=== PATIENT | female | born 1980 | race Caucasian/White ===

== ENCOUNTER 2021-07-31 21:17 | Emergency (ER) | payer MEDICAID, OTHER ==
[~2021-07-31] VITALS: Ht 172.7 cm; Wt 54.4 kg
[2021-07-31] MEDS ORDERED: LABETALOL HCL 5 MG/ML 4ML SYRINGE IV ONE ×2 (21:30→22:45)
[2021-07-31] MEDS ORDERED: LABETALOL HCL 5 MG/ML ML 20ML VIAL IV ONE (21:40)
[2021-08-01 02:00] VITALS: BP 163/92
== END 2021-08-01 02:55 | disposition home or self-care (01) ==
LOC: EDBD 21:17 → ER 21:22
DX: G40.909 Epilepsy, unspecified, not intractable, without status epilepticus (principal); I10 Essential (primary) hypertension; F12.10 Cannabis abuse, uncomplicated; F15.10 Other stimulant abuse, uncomplicated
CPT/HCPCS: 70450; 96374; 96376

== ENCOUNTER 2023-05-27 13:19 | Inpatient (IN) | payer MEDICAID, OTHER ==
[~2023-05-27] VITALS: Ht 172.7 cm; Wt 61.8 kg
[2023-05-27] MEDS ORDERED: ONDANSETRON HCL 4 MG/2 ML VIAL IV ONE (13:30)
[2023-05-27] MEDS ORDERED: MORPHINE SULFATE 4 MG/ML SYR/VIAL IV ONE (13:30)
[2023-05-27] MEDS ORDERED: SODIUM CHLORIDE 0.9% 1,000 ML IVB ONE (13:30)
[2023-05-27] MEDS ORDERED: PANTOPRAZOLE 40 MG/10 ML VIAL INJ IV ONE (13:30)
[2023-05-27 13:49] LABS: Basophils # (auto) 0.1 10 ^3/uL (0-0.2); Basophils % (auto) 0.2 % (0.0-2.0); Eosinophils # (auto) 0 10 ^3/uL (0-0.8); Hematocrit 50.2 % (36.0-46.0); Hemoglobin 16.7 g/dL (12.2-16.2); Lymphocytes % (auto) 4.8 % (10.0-50.0); Mean Corpuscular Hemoglobin 32.5 pg (28.0-32.0); Mean Corpuscular Hgb Conc. 33.3 g/dL (32.0-36.0); Mean Corpuscular Volume 97.8 fL (80.0-100.0); Monocytes # (auto) 1.4 10 ^3/uL (0-1.3); Monocytes % (auto) 6.6 % (0.0-12.0); Neutrophils # (auto) 18.9 10 ^3/uL (1.6-8.6); Neutrophils % (auto) 88.4 % (37.0-80.0); Red Blood Cells 5.13 10^6/uL (4.0-5.20); Red Cell Distribution Width 16.5 % (11.8-14.3); White Blood Cell 21.4 10^3/uL (4.4-10.8)
[2023-05-27] MEDS ORDERED: cloNIDine HCL 0.1 MG TAB PO ONE (14:00)
[2023-05-27 14:09] LABS: Alanine Aminotransferase 15 U/L (7-40); Albumin 4.9 g/dL (3.2-4.8); Alkaline Phosphatase 89 U/L (46-116); Anion Gap 10 (5-15); Aspartate Aminotransferase 25 U/L (13-40); BUN/Creatinine Ratio 10.7 (10.0-20.0); Bilirubin, Total 1.5 mg/dL (0.2-1.0); Blood Urea Nitrogen 17 mg/dL (9-23); Carbon Dioxide 24 mmol/L (20-30); Chloride 98 mmol/L (98-107); Glucose 125 mg/dL (74-106); Lipase 270 U/L (12-53); Magnesium 1.7 mg/dL (1.6-2.6); Potassium 3.6 mmol/L (3.5-5.1); Sodium 132 mmol/L (136-145); Total Protein 8.3 g/dL (5.7-8.2)
[2023-05-27] MEDS ORDERED: hydrALAZINE HCL 20 MG/ML VL IV PRN (21:00)
[2023-05-27] MEDS ORDERED: NITROGLYCERIN 0.4 MG SL TAB SL PRN (21:00)
[2023-05-27] MEDS ORDERED: cefTRIAXone 1GM/50ML D5W 50 ML IV ONE (21:00)
[2023-05-27] MEDS ORDERED: MORPHINE SULFATE INJ 2 MG/ml SYRG IV PRN (21:00)
[2023-05-28] MEDS: ONDANSETRON HCL 4 MG/2 ML VIAL IV PRN ×2 (01:07→22:05)
[2023-05-28] MEDS: MORPHINE SULFATE INJ 2 MG/ml SYRG IV PRN ×4 (01:08→22:06)
[2023-05-28] MEDS: SODIUM CHLORIDE 0.9% 1,000 ML IV SCH ×4 (02:28→18:06)
[2023-05-28 04:32] VITALS: PULSE 94; RESP 18
[2023-05-28 07:13] LABS: Basophils # (auto) 0 10 ^3/uL (0-0.2); Basophils % (auto) 0.2 % (0.0-2.0); Eosinophils # (auto) 0 10 ^3/uL (0-0.8); Eosinophils % (auto) 0.2 % (0.0-7.0); Hematocrit 39.4 % (36.0-46.0); Hemoglobin 12.8 g/dL (12.2-16.2); Lymphocytes # (auto) 2.1 10 ^3/uL (0.4-5.4); Lymphocytes % (auto) 14.8 % (10.0-50.0); Mean Corpuscular Hgb Conc. 32.5 g/dL (32.0-36.0); Mean Corpuscular Volume 98.4 fL (80.0-100.0); Monocytes # (auto) 1.5 10 ^3/uL (0-1.3); Monocytes % (auto) 10.3 % (0.0-12.0); Neutrophils # (auto) 10.6 10 ^3/uL (1.6-8.6); Neutrophils % (auto) 74.5 % (37.0-80.0); Red Blood Cells 4.01 10^6/uL (4.0-5.20); Red Cell Distribution Width 16.5 % (11.8-14.3); White Blood Cell 14.2 10^3/uL (4.4-10.8)
[2023-05-28 07:18] LABS: Alanine Aminotransferase 10 U/L (7-40); Alkaline Phosphatase 59 U/L (46-116); Anion Gap 8 (5-15); Aspartate Aminotransferase 14 U/L (13-40); BUN/Creatinine Ratio 14.1 (10.0-20.0); Bilirubin, Total 0.6 mg/dL (0.2-1.0); Blood Urea Nitrogen 26 mg/dL (9-23); Calcium 9.2 mg/dL (8.7-10.4); Carbon Dioxide 24 mmol/L (20-30); Chloride 100 mmol/L (98-107); Glucose 97 mg/dL (74-106); Potassium 3.9 mmol/L (3.5-5.1); Sodium 132 mmol/L (136-145); Total Protein 6.8 g/dL (5.7-8.2)
[2023-05-28 09:50] LABS: Urine Bacteria NONE SEEN /hpf (None Seen); Urine Blood 2+ /uL (Negative); Urine Clarity HAZY (Clear); Urine Color Yellow (Yellow); Urine Hyaline Cast MOD /lpf (0 - 2); Urine Mucus FEW (None Seen); Urine Protein, UAD 3+ (Negative); Urine Specific Gravity 1.025 (1.001-1.035); Urine Urobilinogen Normal (Negative); Urine WBC 10 /hpf (0 - 5)
[2023-05-28 09:52] VITALS: PULSE 68; RESP 18; O2SAT 95
[2023-05-28] MEDS: PANTOPRAZOLE 40 MG/10 ML VIAL INJ IV SCH (10:08)
[2023-05-28] MEDS: ASPirin 81 mg TAB PO SCH (10:09)
[2023-05-28] MEDS: LOSARTAN POTASSIUM 50 MG TAB PO SCH (10:09)
[2023-05-28] MEDS: cefTRIAXone 1GM/50ML D5W 50 ML IV SCH (10:11)
[2023-05-28] MEDS: NIFEdipine ER 30 MG TAB PO SCH (10:11)
[2023-05-28 10:40] LABS: Amphetamine Screen, Urine Neg (NEGATIVE); Barbiturate Scree,Urine Neg (NEGATIVE); Benzodiazephine Screen, Urine Neg (NEGATIVE); Cannabinoid Screen, Urine Pos (NEGATIVE); Cocaine Screen, Urine Neg (NEGATIVE); Opiate Scree,Urine Pos (NEGATIVE); Phencyclidine Screen, Urine Neg (NEGATIVE)
[2023-05-28 20:00] VITALS: PULSE 71; RESP 18; O2SAT 96
[2023-05-28] MEDS: ATORVASTATIN 20 MG TAB PO SCH (22:05)
[2023-05-29] MEDS: SODIUM CHLORIDE 0.9% 1,000 ML IV SCH ×3 (05:15→21:15)
[2023-05-29 05:56] LABS: Chloride 105 mmol/L (98-107); Potassium 3.3 mmol/L (3.5-5.1); Sodium 136 mmol/L (136-145)
[2023-05-29 05:57] LABS: Anion Gap 7 (5-15); Calcium 9.1 mg/dL (8.5-10.1); Carbon Dioxide 24 mmol/L (20-30)
[2023-05-29 06:01] LABS: Alkaline Phosphatase 46 U/L (46-116)
[2023-05-29 06:02] LABS: BUN/Creatinine Ratio 17.2 (10.0-20.0); Blood Urea Nitrogen 23 mg/dL (9-23); Glucose 114 mg/dL (74-106); Triglycerides 94 mg/dL (< 150)
[2023-05-29 06:03] LABS: LDL Cholesterol 53 mg/dL (< 100)
[2023-05-29 06:04] LABS: Albumin 3.4 g/dL (3.2-4.8); Aspartate Aminotransferase 15 U/L (13-40); Bilirubin, Total 0.3 mg/dL (0.2-1.0); Cholesterol 113 mg/dL (< 200); HDL Cholesterol 38 mg/dL (40-59); Total Protein 5.6 g/dL (5.7-8.2)
[2023-05-29 06:16] LABS: Basophils # (auto) 0 10 ^3/uL (0-0.2); Basophils % (auto) 0.4 % (0.0-2.0); Eosinophils # (auto) 0.1 10 ^3/uL (0-0.8); Eosinophils % (auto) 1.3 % (0.0-7.0); Hematocrit 33.5 % (36.0-46.0); Hemoglobin 11.2 g/dL (12.2-16.2); Lymphocytes # (auto) 1.6 10 ^3/uL (0.4-5.4); Mean Corpuscular Hgb Conc. 33.4 g/dL (32.0-36.0); Mean Corpuscular Volume 98.9 fL (80.0-100.0); Monocytes # (auto) 0.8 10 ^3/uL (0-1.3); Monocytes % (auto) 9.4 % (0.0-12.0); Neutrophils # (auto) 6.2 10 ^3/uL (1.6-8.6); Neutrophils % (auto) 70.9 % (37.0-80.0); Red Blood Cells 3.38 10^6/uL (4.0-5.20); Red Cell Distribution Width 16.1 % (11.8-14.3); White Blood Cell 8.8 10^3/uL (4.4-10.8)
[2023-05-29 06:29] LABS: Alanine Aminotransferase 11 U/L (7-40)
[2023-05-29] MEDS ORDERED: POTASSIUM CHL 20 Meq TABLET PO ONE (07:15)
[2023-05-29] MEDS: ONDANSETRON HCL 4 MG/2 ML VIAL IV PRN (07:17)
[2023-05-29] MEDS: MORPHINE SULFATE INJ 2 MG/ml SYRG IV PRN ×3 (07:18→22:07)
[2023-05-29] MEDS: PANTOPRAZOLE 40 MG/10 ML VIAL INJ IV SCH (08:37)
[2023-05-29] MEDS: cefTRIAXone 1GM/50ML D5W 50 ML IV SCH (08:37)
[2023-05-29] MEDS: ASPirin 81 mg TAB PO SCH (08:38)
[2023-05-29] MEDS: LOSARTAN POTASSIUM 50 MG TAB PO SCH (08:38)
[2023-05-29] MEDS: NIFEdipine ER 30 MG TAB PO SCH (08:38)
[2023-05-29 09:06] LABS: Lipase 79 U/L (12-53); Magnesium 1.8 mg/dL (1.6-2.6)
[2023-05-29 13:01] VITALS: BP 116/74; PULSE 75; RESP 16; TEMP 98.1; O2SAT 95
[2023-05-29] MEDS ORDERED: LOSA100T58 PO (13:50)
[2023-05-29] MEDS ORDERED: NIFE90TA75 PO (13:51)
[2023-05-29] MEDS ORDERED: GADOTERATE MEG 10 MMOL/20ml INJ (0.5MMOL/ml) IV ONE (15:14)
[2023-05-29 16:56] VITALS: BP 113/71; PULSE 81; RESP 16; TEMP 98.2; O2SAT 98
[2023-05-29 20:00] VITALS: BP 113/71; PULSE 81; PULSE 91; RESP 16; TEMP 98.2; O2SAT 98
[2023-05-29] MEDS: ATORVASTATIN 20 MG TAB PO SCH (21:44)
[2023-05-29 21:50] VITALS: BP 126/78; PULSE 108; RESP 16; TEMP 98.1; O2SAT 98
[2023-05-30] MEDS: SODIUM CHLORIDE 0.9% 1,000 ML IV SCH ×2 (01:48→10:05)
[2023-05-30] MEDS: MORPHINE SULFATE INJ 2 MG/ml SYRG IV PRN (04:24)
[2023-05-30 05:00] VITALS: BP 124/75; PULSE 102; RESP 16; TEMP 97.6; O2SAT 100
[2023-05-30 08:00] VITALS: PULSE 114; PULSE 84; RESP 16; O2SAT 98
[2023-05-30 08:22] LABS: Anion Gap 6 (5-15); Carbon Dioxide 23 mmol/L (20-30); Chloride 109 mmol/L (98-107); Potassium 3.8 mmol/L (3.5-5.1); Sodium 138 mmol/L (136-145)
[2023-05-30 08:23] LABS: Calcium 8.9 mg/dL (8.5-10.1)
[2023-05-30 08:28] LABS: BUN/Creatinine Ratio 10.7 (10.0-20.0); Blood Urea Nitrogen 11 mg/dL (9-23); Glucose 96 mg/dL (74-106)
[2023-05-30 09:15] VITALS: BP 145/90; PULSE 114; RESP 16; TEMP 97.9; O2SAT 98
[2023-05-30] MEDS: cefTRIAXone 1GM/50ML D5W 50 ML IV SCH (09:19)
[2023-05-30] MEDS: LOSARTAN POTASSIUM 50 MG TAB PO SCH (09:58)
[2023-05-30] MEDS: ASPirin 81 mg TAB PO SCH (09:59)
[2023-05-30] MEDS: NIFEdipine ER 30 MG TAB PO SCH (09:59)
[2023-05-30] MEDS: PANTOPRAZOLE 40 MG/10 ML VIAL INJ IV SCH (09:59)
[2023-05-30 13:00] VITALS: BP 138/81; PULSE 92; RESP 18; TEMP 98; O2SAT 98
[2023-05-30 17:14] VITALS: BP 145/90
== END 2023-05-30 19:30 | disposition home or self-care (01) | DRG 282 ==
LOC: ER 13:19 → OVERFLOW 21:12 → TELE 21:12 → UNDOADMIN 21:12 → TELE-CENTR 05-29 12:31 → CENTRAL 05-30 15:43
PROVIDERS: ADMIT Nurse Practitioner; ATTEND Internal Medicine Geriatric Medicine
DX: K85.20 Alcohol induced acute pancreatitis without necrosis or infection (principal); R65.11 Systemic inflammatory response syndrome (SIRS) of non-infectious origin with acute organ dysfunction; I21.A1 Myocardial infarction type 2; N17.9 Acute kidney failure, unspecified; F17.210 Nicotine dependence, cigarettes, uncomplicated; I16.0 Hypertensive urgency; I10 Essential (primary) hypertension; N28.1 Cyst of kidney, acquired; Z82.49 Family history of ischemic heart disease and other diseases of the circulatory system; Z83.3 Family history of diabetes mellitus; Z98.51 Tubal ligation status
CPT/HCPCS: 36415; 74176; 74183; 80048; 80053; 80061; 80307; 81001; 83605; 83690; 83735; 84484; 85025; 93005; C9113; G0378; J0696; J2405

== ENCOUNTER 2023-12-25 21:30 | Inpatient (IN) | payer MEDICAID, OTHER ==
[~2023-12-25] VITALS: Ht 170.2 cm; Wt 135.6 kg
[~2023-12-25 21:30] MED LIST: LOSA-535 PO; NIFE90TA75 PO
[2023-12-25 22:00] VITALS: PULSE 112; RESP 15; O2SAT 99
[2023-12-25] MEDS: KETOROLAC TROMETH 30 MG/ML 1ML VIAL IV ONE (22:10)
[2023-12-25 22:21] LABS: Chloride 107 mmol/L (98-107); Potassium 3.5 mmol/L (3.5-5.1); Sodium 136 mmol/L (136-145)
[2023-12-25 22:22] LABS: Anion Gap 10 (5-15); Calcium 11.1 mg/dL (8.5-10.1); Carbon Dioxide 19 mmol/L (20-30)
[2023-12-25 22:27] LABS: BUN/Creatinine Ratio 16.4 (10.0-20.0); Blood Urea Nitrogen 30 mg/dL (9-23); Glucose 129 mg/dL (74-106)
[2023-12-25 22:58] LABS: Basophils # (auto) 0.1 10 ^3/uL (0-0.2); Basophils % (auto) 0.6 % (0.0-2.0); Eosinophils # (auto) 0.1 10 ^3/uL (0-0.8); Hematocrit 36.2 % (36.0-46.0); Hemoglobin 11.9 g/dL (12.2-16.2); Lymphocytes # (auto) 1.6 10 ^3/uL (0.4-5.4); Lymphocytes % (auto) 12.8 % (10.0-50.0); Mean Corpuscular Hemoglobin 31.8 pg (28.0-32.0); Mean Corpuscular Hgb Conc. 32.9 g/dL (32.0-36.0); Mean Corpuscular Volume 96.8 fL (80.0-100.0); Monocytes # (auto) 1.1 10 ^3/uL (0-1.3); Monocytes % (auto) 9.2 % (0.0-12.0); Neutrophils # (auto) 9.4 10 ^3/uL (1.6-8.6); Neutrophils % (auto) 76.4 % (37.0-80.0); Nucleated Red Blood Cells % 0.1 %; Red Blood Cells 3.74 10^6/uL (4.0-5.20); Red Cell Distribution Width 17.6 % (11.8-14.3); White Blood Cell 12.3 10^3/uL (4.4-10.8)
[2023-12-26] VITALS (11 sets, daily range): BP systolic 104–166; BP diastolic 62–105; PULSE 73–108; RESP 18–20; TEMP 97.7–98.5; O2SAT 96–100
[2023-12-26] MEDS ORDERED: NITROGLYCERIN 0.4 MG SL TAB SL PRN (00:15)
[2023-12-26] MEDS: HYDROcodone-ACET 5/325MG TAB PO PRN (00:50)
[2023-12-26 01:35] LABS: Triglycerides 92 mg/dL (< 150)
[2023-12-26 01:36] LABS: Blood Alcohol < 3.0 mg/dL (<10); LDL Cholesterol 84 mg/dL (< 100)
[2023-12-26 01:37] LABS: Cholesterol 117 mg/dL (< 200); HDL Cholesterol 25 mg/dL (40-59)
[2023-12-26] MEDS: MORPHINE SULFATE INJ 2 MG/ml SYRG IV PRN (01:47)
[2023-12-26] MEDS: ONDANSETRON HCL 4 MG/2 ML VIAL IV PRN (01:48)
[2023-12-26 01:49] LABS: Lipase 920 U/L (12-53)
[2023-12-26] MEDS ORDERED: FURO40TA4 PO (03:18)
[2023-12-26] MEDS: hydrALAZINE HCL 20 MG/ML VL IV PRN (03:25)
[2023-12-26] MEDS: HYDROcodone-ACET 5/325MG TAB PO ONE (07:01)
[2023-12-26] MEDS: FUROSEMIDE 40 MG TAB PO SCH (09:02)
[2023-12-26] MEDS: ASPirin 81 mg TAB PO SCH (09:03)
[2023-12-26] MEDS: cloNIDine HCL 0.1 MG TAB PO SCH (09:10)
[2023-12-26] MEDS: NIFEdipine ER 30 MG TAB PO SCH (09:10)
[2023-12-26] MEDS: SODIUM BICARB 50mEq/50ml Vial 50 ML in SOD CHL 0.45% 1,000 ML IV SCH (12:18)
[2023-12-26 12:46] LABS: Phosphorus 3.6 mg/dL (2.4-5.1)
[2023-12-26 14:43] LABS: Urine Bacteria None Seen /hpf (None Seen); Urine WBC None Seen /hpf (0 - 5)
[2023-12-26 15:12] LABS: Urine Blood 1+ /uL (Negative); Urine Clarity Clear (Clear); Urine Color Colorless (Yellow); Urine Protein, UAD Negative (Negative); Urine Specific Gravity 1.008 (1.001-1.035); Urine Urobilinogen Normal (Negative); Urine pH 5.5 (5.0-9.0)
[2023-12-26 15:17] LABS: Sodium Urine 80 mmol/L (40-220)
[2023-12-26 15:23] LABS: Protein, Urine < 6.0 mg/dL (0.0-11.9)
[2023-12-26 15:24] LABS: Amphetamine Screen, Urine Neg (NEGATIVE); Benzodiazephine Screen, Urine Neg (NEGATIVE)
[2023-12-26 15:25] LABS: Barbiturate Scree,Urine Neg (NEGATIVE); Cannabinoid Screen, Urine Pos (NEGATIVE); Cocaine Screen, Urine Neg (NEGATIVE); Opiate Scree,Urine Pos (NEGATIVE); Phencyclidine Screen, Urine Neg (NEGATIVE)
[2023-12-26] MEDS ORDERED: NIFE1TAB30 PO (15:54)
[2023-12-26] MEDS: HYDROmorphone HCL 2 MG/ML VL/or syr IV PRN (17:54)
[2023-12-26] MEDS ORDERED: ATORVASTATIN 20 MG TAB PO SCH (22:00)
[2023-12-27] VITALS (8 sets, daily range): BP systolic 115–150; BP diastolic 75–97; PULSE 62–89; RESP 18–20; TEMP 97.9–98.7; O2SAT 95–99
[2023-12-27 05:58] LABS: Basophils # (auto) 0 10 ^3/uL (0-0.2); Basophils % (auto) 0.8 % (0.0-2.0); Eosinophils # (auto) 0.3 10 ^3/uL (0-0.8); Eosinophils % (auto) 4.7 % (0.0-7.0); Hematocrit 28.5 % (36.0-46.0); Hemoglobin 9.6 g/dL (12.2-16.2); Lymphocytes # (auto) 2.1 10 ^3/uL (0.4-5.4); Lymphocytes % (auto) 35.2 % (10.0-50.0); Mean Corpuscular Hemoglobin 32.6 pg (28.0-32.0); Mean Corpuscular Hgb Conc. 33.7 g/dL (32.0-36.0); Mean Corpuscular Volume 96.7 fL (80.0-100.0); Monocytes # (auto) 0.6 10 ^3/uL (0-1.3); Monocytes % (auto) 10.2 % (0.0-12.0); Neutrophils # (auto) 2.9 10 ^3/uL (1.6-8.6); Neutrophils % (auto) 49.1 % (37.0-80.0); Nucleated Red Blood Cells % 0.1 %; Red Blood Cells 2.95 10^6/uL (4.0-5.20); Red Cell Distribution Width 17.7 % (11.8-14.3); White Blood Cell 5.9 10^3/uL (4.4-10.8)
[2023-12-27 06:15] LABS: Albumin 3.4 g/dL (3.2-4.8); Alkaline Phosphatase 55 U/L (46-116); Calcium 8.5 mg/dL (8.5-10.1); Carbon Dioxide 23 mmol/L (20-30); Chloride 108 mmol/L (98-107); Glucose 85 mg/dL (74-106); Triglycerides 114 mg/dL (< 150)
[2023-12-27 06:16] LABS: Alanine Aminotransferase < 9 U/L (7-40); Anion Gap 5 (5-15); Aspartate Aminotransferase 10 U/L (13-40); BUN/Creatinine Ratio 15.9 (10.0-20.0); Bilirubin, Total 0.2 mg/dL (0.2-1.0); Blood Urea Nitrogen 21 mg/dL (9-23); Cholesterol 101 mg/dL (< 200); HDL Cholesterol 20 mg/dL (40-59); LDL Cholesterol 67 mg/dL (< 100); Magnesium 1.9 mg/dL (1.6-2.6); Potassium 3.9 mmol/L (3.5-5.1); Sodium 136 mmol/L (136-145); Total Protein 5.9 g/dL (5.7-8.2)
[2023-12-27 06:42] LABS: Lipase 930 U/L (12-53)
[2023-12-27] MEDS ORDERED: TPN PER PHARMACY 0 ML IV SCH (14:30)
[2023-12-27] MEDS: FAMOTIDINE (10MG/ML) 2ML VL IV ONE (14:30)
[2023-12-27] MEDS: cefTRIAXone 1GM/50ML D5W 50 ML IV ONE (17:27)
[2023-12-27] MEDS: FAMOTIDINE (10MG/ML) 2ML VL IV SCH (17:27)
[2023-12-27] MEDS: HYDROmorphone HCL 2 MG/ML VL/or syr IV PRN (17:30)
[2023-12-27] MEDS: AMINO ACID INFUSION IN D5W 2,000 ML IV NR (20:28)
[2023-12-27] MEDS: metroNIDAZOLE 500MG/100ML 100 ML IV SCH (21:16)
[2023-12-27] MEDS: TEMAZEPAM 15 MG CAP PO PRN (22:57)
[2023-12-27] MEDS: InsuLIN REG 1unit/0.01ml Soln (100units/ml) SC SCH (23:04)
[2023-12-27] MEDS: ACCU-CHEK COMFORT CURVE STRIP VI SCH (23:04)
[2023-12-28] VITALS (8 sets, daily range): BP systolic 107–148; BP diastolic 74–91; PULSE 73–91; RESP 14–19; TEMP 97.5–98.3; O2SAT 96–100
[2023-12-28] MEDS ORDERED: DEXTROSE (50%) 50ML SYRG IV SCH
[2023-12-28 06:24] LABS: Alkaline Phosphatase 54 U/L (46-116); Anion Gap 2 (5-15); BUN/Creatinine Ratio 11.8 (10.0-20.0); Blood Urea Nitrogen 12 mg/dL (9-23); Calcium 8.1 mg/dL (8.5-10.1); Carbon Dioxide 26 mmol/L (20-30); Chloride 108 mmol/L (98-107); Glucose 94 mg/dL (74-106); Magnesium 1.8 mg/dL (1.6-2.6); Sodium 136 mmol/L (136-145)
[2023-12-28 06:25] LABS: Albumin 3.3 g/dL (3.2-4.8); Aspartate Aminotransferase 9 U/L (13-40); Phosphorus 1.6 mg/dL (2.4-5.1)
[2023-12-28 06:26] LABS: Alanine Aminotransferase < 9 U/L (7-40); Bilirubin, Total 0.2 mg/dL (0.2-1.0); Total Protein 5.8 g/dL (5.7-8.2)
[2023-12-28 07:00] LABS: Lipase 686 U/L (12-53)
[2023-12-28] MEDS: SODIUM BICARB 50mEq/50ml Vial 50 ML in SOD CHL 0.45% 1,000 ML IV SCH (10:00)
[2023-12-28] MEDS: cefTRIAXone 1GM/50ML D5W 50 ML IV SCH (10:02)
[2023-12-28] MEDS: HYDROmorphone HCL 2 MG/ML VL/or syr IV PRN (12:07)
[2023-12-28] MEDS: SODIUM PHOSPHATES 24 MEQ in SODIUM CHL 0.9% 100 ML IV ONE (20:08)
[2023-12-28] MEDS: AMINO ACID INFUSION IN D10W 1,000 ML IV SCH (22:20)
[2023-12-29] VITALS (8 sets, daily range): BP systolic 132–159; BP diastolic 84–96; PULSE 60–93; RESP 16–18; TEMP 97.9–98.4; O2SAT 96–100
[2023-12-29 05:13] LABS: Basophils # (auto) 0 10 ^3/uL (0-0.2); Basophils % (auto) 0.7 % (0.0-2.0); Eosinophils # (auto) 0.2 10 ^3/uL (0-0.8); Eosinophils % (auto) 4.5 % (0.0-7.0); Hematocrit 29.5 % (36.0-46.0); Lymphocytes # (auto) 1.2 10 ^3/uL (0.4-5.4); Mean Corpuscular Hemoglobin 32.6 pg (28.0-32.0); Mean Corpuscular Hgb Conc. 33.8 g/dL (32.0-36.0); Mean Corpuscular Volume 96.5 fL (80.0-100.0); Monocytes # (auto) 0.4 10 ^3/uL (0-1.3); Monocytes % (auto) 9.4 % (0.0-12.0); Neutrophils # (auto) 2.5 10 ^3/uL (1.6-8.6); Neutrophils % (auto) 57.4 % (37.0-80.0); Nucleated Red Blood Cells % 0.1 %; Red Blood Cells 3.06 10^6/uL (4.0-5.20); Red Cell Distribution Width 17.3 % (11.8-14.3); White Blood Cell 4.4 10^3/uL (4.4-10.8)
[2023-12-29 05:29] LABS: Albumin 3.3 g/dL (3.2-4.8); Alkaline Phosphatase 53 U/L (46-116); Anion Gap 1 (5-15); Aspartate Aminotransferase 8 U/L (13-40); BUN/Creatinine Ratio 8.6 (10.0-20.0); Blood Urea Nitrogen 8 mg/dL (9-23); Calcium 8.2 mg/dL (8.7-10.4); Carbon Dioxide 24 mmol/L (20-30); Chloride 113 mmol/L (98-107); Glucose 100 mg/dL (74-106); Lipase 247 U/L (12-53); Magnesium 1.7 mg/dL (1.6-2.6); Potassium 3.8 mmol/L (3.5-5.1); Sodium 138 mmol/L (136-145)
[2023-12-29 05:30] LABS: Alanine Aminotransferase < 9 U/L (7-40); Bilirubin, Total 0.2 mg/dL (0.2-1.0); Phosphorus 1.6 mg/dL (2.4-5.1)
[2023-12-29] MEDS: PANCREATIC ENZYMES 4200 UNIT CAP PO SCH (12:45)
[2023-12-29] MEDS: SODIUM PHOSPHATES 40 MEQ in D5W 5% 250 ML IV ONE (12:56)
[2023-12-30] VITALS (7 sets, daily range): BP systolic 142–172; BP diastolic 73–107; PULSE 70–91; RESP 17–18; TEMP 98–98.6; O2SAT 90–100
[2023-12-30 06:49] LABS: Potassium 3.9 mmol/L (3.5-5.1)
[2023-12-30 06:50] LABS: Calcium 8.3 mg/dL (8.5-10.1)
[2023-12-30 06:55] LABS: BUN/Creatinine Ratio 8.5 (10.0-20.0)
[2023-12-30 06:56] LABS: Magnesium 1.8 mg/dL (1.6-2.6)
[2023-12-30 06:57] LABS: Albumin 3.3 g/dL (3.2-4.8); Phosphorus 2.7 mg/dL (2.4-5.1)
[2023-12-30] MEDS: FAMOTIDINE (10MG/ML) 2ML VL IV SCH (22:20)
[2023-12-31] VITALS (8 sets, daily range): BP systolic 126–167; BP diastolic 83–107; PULSE 65–89; RESP 16–20; TEMP 98–98.4; O2SAT 95–99
[2023-12-31 07:05] LABS: Alanine Aminotransferase < 9 U/L (7-40); Albumin 3.1 g/dL (3.2-4.8); Alkaline Phosphatase 47 U/L (46-116); Anion Gap 2 (5-15); Aspartate Aminotransferase < 8 U/L (13-40); BUN/Creatinine Ratio 8.2 (10.0-20.0); Blood Urea Nitrogen 8 mg/dL (9-23); Carbon Dioxide 21 mmol/L (20-30); Chloride 116 mmol/L (98-107); Glucose 86 mg/dL (74-106); Lipase 193 U/L (12-53); Sodium 139 mmol/L (136-145)
[2023-12-31 07:06] LABS: Bilirubin, Total < 0.2 mg/dL (0.2-1.0); Total Protein 5.7 g/dL (5.7-8.2)
[2023-12-31] MEDS ORDERED: GADOTERATE MEG 10 MMOL/20ml INJ (0.5MMOL/ml) IV ONE (10:16)
[2023-12-31 11:04] LABS: INR 1.08 (0.9-1.15); Partial Thromboplastin Time 30.8 SEC (24.5-34.5); Prothrombin Time 11.4 sec (9.3-11.8)
[2024-01-01] VITALS (9 sets, daily range): BP systolic 118–161; BP diastolic 60–101; PULSE 62–108; RESP 16–20; TEMP 97.9–98.5; O2SAT 96–99
[2024-01-02] VITALS (7 sets, daily range): BP systolic 131–160; BP diastolic 88–103; PULSE 71–116; RESP 17–20; TEMP 97.7–98.4; O2SAT 96–99
[2024-01-02] MEDS: ACETAMINOPHEN 325 MG TAB PO PRN (05:19)
[2024-01-02] MEDS ORDERED: ACET-1079 PO (09:11)
[2024-01-02] MEDS ORDERED: ZOFR4T PO (09:11)
[2024-01-02] MEDS ORDERED: PANC1CAP48 PO (09:12)
== END 2024-01-02 12:48 | disposition home or self-care (01) | DRG 282 ==
LOC: ER 21:30 → EDBD 21:30 → TELE 12-26 00:18 → TELE-WESTW 12-26 00:18
PROVIDERS: ADMIT Nurse Practitioner; ATTEND Internal Medicine Geriatric Medicine
DX: K85.90 Acute pancreatitis without necrosis or infection, unspecified (principal); N17.0 Acute kidney failure with tubular necrosis; D63.1 Anemia in chronic kidney disease; E87.20 Acidosis, unspecified; E83.52 Hypercalcemia; I12.9 Hypertensive chronic kidney disease with stage 1 through stage 4 chronic kidney disease, or unspecified chronic kidney disease; N28.1 Cyst of kidney, acquired; N18.9 Chronic kidney disease, unspecified; K86.3 Pseudocyst of pancreas; F15.10 Other stimulant abuse, uncomplicated; F10.10 Alcohol abuse, uncomplicated; Y90.9 Presence of alcohol in blood, level not specified; F17.210 Nicotine dependence, cigarettes, uncomplicated; Z79.899 Other long term (current) drug therapy; Z83.3 Family history of diabetes mellitus; Z82.5 Family history of asthma and other chronic lower respiratory diseases; Z81.8 Family history of other mental and behavioral disorders; Z82.49 Family history of ischemic heart disease and other diseases of the circulatory system
CPT/HCPCS: 36415; 71045; 74176; 74183; 76705; 76775; 80048; 80053; 80061; 80069; 80307; 80320; 81001; 82306; 82570; 82962; 83690; 83735; 83880; 84100; 84156; 84300; 84443; 84484; 85025; 85379; 85610; 85730; 93005; 93306; 96374; 96375; 99291; G0378; J1885; J2405; J3490; J7060

== ENCOUNTER 2024-01-20 18:38 | Inpatient (IN) | payer MEDICAID ==
[~2024-01-20] VITALS: Ht 172.7 cm; Wt 55.0 kg
[~2024-01-20 18:38] MED LIST changes: +ACET-1079 PO; -NIFE90TA75 PO; +PANC1CAP48 PO; +ZOFR4T PO
[2024-01-20 19:04] LABS: Basophils # (auto) 0 10 ^3/uL (0-0.2); Basophils % (auto) 0.3 % (0.0-2.0); Eosinophils # (auto) 0.2 10 ^3/uL (0-0.8); Hematocrit 35.6 % (36.0-46.0); Hemoglobin 11.7 g/dL (12.2-16.2); Lymphocytes # (auto) 1.5 10 ^3/uL (0.4-5.4); Lymphocytes % (auto) 12.3 % (10.0-50.0); Mean Corpuscular Hemoglobin 30.6 pg (28.0-32.0); Mean Corpuscular Hgb Conc. 32.8 g/dL (32.0-36.0); Mean Corpuscular Volume 93.2 fL (80.0-100.0); Monocytes # (auto) 0.9 10 ^3/uL (0-1.3); Monocytes % (auto) 7.4 % (0.0-12.0); Neutrophils # (auto) 9.6 10 ^3/uL (1.6-8.6); Red Blood Cells 3.82 10^6/uL (4.0-5.20); Red Cell Distribution Width 16.9 % (11.8-14.3); White Blood Cell 12.3 10^3/uL (4.4-10.8)
[2024-01-20 19:26] LABS: Alanine Aminotransferase 10 U/L (7-40); Alkaline Phosphatase 63 U/L (46-116); Anion Gap 10 (5-15); Aspartate Aminotransferase 14 U/L (13-40); BUN/Creatinine Ratio 9.6 (10.0-20.0); Bilirubin, Total 0.4 mg/dL (0.2-1.0); Blood Urea Nitrogen 12 mg/dL (9-23); Calcium 9.4 mg/dL (8.7-10.4); Carbon Dioxide 16 mmol/L (20-30); Chloride 110 mmol/L (98-107); Glucose 156 mg/dL (74-106); Potassium 3.5 mmol/L (3.5-5.1); Sodium 136 mmol/L (136-145); Total Protein 7.1 g/dL (5.7-8.2)
[2024-01-20 19:33] LABS: Lipase 884 U/L (12-53)
[2024-01-20] MEDS: SODIUM CHLORIDE 0.9% 1,000 ML IVB ONE (19:42)
[2024-01-20] MEDS: PROCHLORPERAZINE EDISYLATE 5 MG/ML 2ML VIAL IV ONE (19:42)
[2024-01-20] MEDS: PANTOPRAZOLE 40 MG/10 ML VIAL INJ IV ONE (19:42)
[2024-01-20] MEDS: HYDROmorphone HCL 2 MG/ML VL/or syr IV ONE (19:45)
[2024-01-20] MEDS: hydrALAZINE HCL 20 MG/ML VL IV ONE (20:14)
[2024-01-20] MEDS: diphenhdrAMINE HCL 50 MG/1 ML VL IV ONE (20:42)
[2024-01-20] MEDS ORDERED: ACETAMINOPHEN 325 MG TAB PO PRN (21:15)
[2024-01-20] MEDS ORDERED: DOCUSATE SOD 100 MG CAP PO PRN (21:15)
[2024-01-20 21:38] LABS: LDL Cholesterol 83 mg/dL (< 100); Triglycerides 95 mg/dL (< 150)
[2024-01-20 21:39] LABS: HDL Cholesterol 37 mg/dL (40-59)
[2024-01-20] MEDS: LACTATED RINGER'S 1,000 ML IV ONE (21:41)
[2024-01-20] MEDS: LABETALOL HCL 20 MG/4 ML VL IV ONE (21:44)
[2024-01-20] MEDS: HYDROcodone-ACET 5/325MG TAB PO PRN (21:57)
[2024-01-20 22:13] LABS: Cholesterol 131 mg/dL (< 200)
[2024-01-20] MEDS: SODIUM CHLOR 0.9% PF (SALINE LOCK) 10ML VIAL/SYR IV SCH (22:36)
[2024-01-20] MEDS: LABETALOL HCL 20 MG/4 ML VL IV PRN (23:35)
[2024-01-21 00:29] LABS: Creatinine, Urine 46.4 mg/dL (30.0-125.0); Urine Bacteria FEW /hpf (None Seen); Urine Blood Negative /uL (Negative); Urine Budding Yeast OCCASIONAL /hpf (None Seen); Urine Clarity Turbid (Clear); Urine Color Light-Yellow (Yellow); Urine Mucus FEW (None Seen); Urine Protein, UAD 1+ (Negative); Urine Specific Gravity 1.013 (1.001-1.035); Urine Urobilinogen Normal (Negative); Urine WBC 3 /hpf (0 - 5); Urine pH 6.5 (5.0-9.0)
[2024-01-21] MEDS: hydrALAZINE HCL 20 MG/ML VL IV PRN (01:58)
[2024-01-21] MEDS: HYDROmorphone HCL 2 MG/ML VL/or syr IV PRN (03:15)
[2024-01-21 07:30] VITALS: PULSE 88; RESP 88; O2SAT 99
[2024-01-21] MEDS: PANCREATIC ENZYMES 4200 UNIT CAP PO SCH (08:56)
[2024-01-21] MEDS: PANTOPRAZOLE 40 MG/10 ML VIAL INJ IV SCH (09:02)
[2024-01-21 13:37] LABS: Amphetamine Screen, Urine Neg (NEGATIVE); Barbiturate Scree,Urine Neg (NEGATIVE); Benzodiazephine Screen, Urine Neg (NEGATIVE); Cocaine Screen, Urine Neg (NEGATIVE); Opiate Scree,Urine Neg (NEGATIVE)
[2024-01-21 13:38] LABS: Cannabinoid Screen, Urine Pos (NEGATIVE); Phencyclidine Screen, Urine Neg (NEGATIVE)
[2024-01-21] MEDS: SODIUM CHLORIDE 0.9% 1,900 ML IV ONE (14:14)
[2024-01-21 15:13] LABS: Blood Alcohol < 3.0 mg/dL (<10); Triglycerides 79 mg/dL (< 150)
[2024-01-21 15:14] LABS: LDL Cholesterol 64 mg/dL (< 100)
[2024-01-21 15:15] LABS: Cholesterol 108 mg/dL (< 200); HDL Cholesterol 33 mg/dL (40-59)
[2024-01-21] MEDS: LOSARTAN POTASSIUM 50 MG TAB PO SCH (17:54)
[2024-01-21 19:25] VITALS: PULSE 109; RESP 17; O2SAT 98
[2024-01-21] MEDS ORDERED: MORPHINE SULFATE INJ 2 MG/ml SYRG IV PRN (19:45)
[2024-01-21] MEDS: ONDANSETRON HCL 4 MG/2 ML VIAL IV PRN (20:45)
[2024-01-22] VITALS (8 sets, daily range): BP systolic 114–138; BP diastolic 76–96; PULSE 74–101; RESP 16–18; TEMP 97.5–98.6; O2SAT 92–99
[2024-01-22 06:49] LABS: Basophils # (auto) 0 10 ^3/uL (0-0.2); Basophils % (auto) 0.3 % (0.0-2.0); Eosinophils # (auto) 0.2 10 ^3/uL (0-0.8); Eosinophils % (auto) 2.7 % (0.0-7.0); Hematocrit 27.2 % (36.0-46.0); Hemoglobin 9.1 g/dL (12.2-16.2); Lymphocytes # (auto) 1.6 10 ^3/uL (0.4-5.4); Lymphocytes % (auto) 25.3 % (10.0-50.0); Mean Corpuscular Hemoglobin 30.8 pg (28.0-32.0); Mean Corpuscular Hgb Conc. 33.3 g/dL (32.0-36.0); Mean Corpuscular Volume 92.6 fL (80.0-100.0); Monocytes # (auto) 0.6 10 ^3/uL (0-1.3); Monocytes % (auto) 9.2 % (0.0-12.0); Neutrophils % (auto) 62.5 % (37.0-80.0); Red Blood Cells 2.94 10^6/uL (4.0-5.20); Red Cell Distribution Width 16.7 % (11.8-14.3); White Blood Cell 6.3 10^3/uL (4.4-10.8)
[2024-01-22 07:06] LABS: Albumin 3.3 g/dL (3.2-4.8); Alkaline Phosphatase 53 U/L (46-116); Calcium 9.1 mg/dL (8.7-10.4); Carbon Dioxide 24 mmol/L (20-30); Chloride 111 mmol/L (98-107); Glucose 89 mg/dL (74-106); Potassium 4.2 mmol/L (3.5-5.1)
[2024-01-22 07:07] LABS: Anion Gap 4 (5-15); Aspartate Aminotransferase < 8 U/L (13-40); BUN/Creatinine Ratio 7.1 (10.0-20.0); Bilirubin, Total 0.5 mg/dL (0.2-1.0); Blood Urea Nitrogen 7 mg/dL (9-23); Sodium 139 mmol/L (136-145); Total Protein 5.9 g/dL (5.7-8.2)
[2024-01-22 07:08] LABS: Alanine Aminotransferase < 9 U/L (7-40)
[2024-01-22] MEDS ORDERED: PANT40TA2 PO (16:14)
== END 2024-01-22 18:58 | disposition home or self-care (01) | DRG 282 ==
LOC: EDBD 18:38 → ER 18:42 → TELE 21:05 → TELE-WESTW 01-21 21:17
PROVIDERS: ADMIT Internal Medicine Pulmonary Disease; ATTEND Internal Medicine Pulmonary Disease
DX: K85.90 Acute pancreatitis without necrosis or infection, unspecified (principal); N17.0 Acute kidney failure with tubular necrosis; D64.9 Anemia, unspecified; D72.829 Elevated white blood cell count, unspecified; F17.210 Nicotine dependence, cigarettes, uncomplicated; E11.65 Type 2 diabetes mellitus with hyperglycemia; I16.0 Hypertensive urgency; K86.3 Pseudocyst of pancreas; Z82.49 Family history of ischemic heart disease and other diseases of the circulatory system; Z83.3 Family history of diabetes mellitus; Z79.899 Other long term (current) drug therapy
CPT/HCPCS: 36415; 74176; 76700; 80053; 80061; 80307; 80320; 81001; 81025; 82570; 83036; 83690; 84300; 84702; 85025; 96361; 96374; 96375; G0378; J2405; J2470

== ENCOUNTER 2024-02-06 20:32 | Emergency (ER) | payer MEDICAID ==
[~2024-02-06] VITALS: Ht 172.7 cm; Wt 54.6 kg
[~2024-02-06 20:32] MED LIST changes: +PANT40TA2 PO
[2024-02-06] MEDS: SODIUM CHLORIDE 0.9% 500 ML IVB ONE (20:45)
[2024-02-06] MEDS: ONDANSETRON HCL 4 MG/2 ML VIAL IV ONE (20:45)
[2024-02-06] MEDS: PANTOPRAZOLE 40 MG/10 ML VIAL INJ IV ONE (20:45)
[2024-02-06] MEDS: MORPHINE SULFATE 4 MG/ML SYR/VIAL IV ONE (20:45)
[2024-02-06 21:38] LABS: Basophils # (auto) 0 10 ^3/uL (0-0.2); Eosinophils # (auto) 0 10 ^3/uL (0-0.8); Lymphocytes # (auto) 2.1 10 ^3/uL (0.4-5.4); Monocytes # (auto) 1.5 10 ^3/uL (0-1.3); Neutrophils # (auto) 11.1 10 ^3/uL (1.6-8.6); Nucleated Red Blood Cells % 0.1 %
[2024-02-06 21:41] LABS: Basophils % (auto) 0.1 % (0.0-2.0); Eosinophils % (auto) 0.3 % (0.0-7.0); Hematocrit 20.6 % (36.0-46.0); Lymphocytes % (auto) 14.4 % (10.0-50.0); Mean Corpuscular Hemoglobin 28.7 pg (28.0-32.0); Mean Corpuscular Hgb Conc. 33.6 g/dL (32.0-36.0); Mean Corpuscular Volume 85.4 fL (80.0-100.0); Monocytes % (auto) 9.9 % (0.0-12.0); Neutrophils % (auto) 75.3 % (37.0-80.0); Red Blood Cells 2.41 10^6/uL (4.0-5.20); Red Cell Distribution Width 16.6 % (11.8-14.3); White Blood Cell 14.7 10^3/uL (4.4-10.8)
[2024-02-06 21:48] LABS: Hemoglobin 6.9 g/dL (12.2-16.2)
[2024-02-06 21:50] VITALS: RESP 16; O2SAT 96
[2024-02-06 21:54] LABS: Alanine Aminotransferase 122 U/L (7-40); Albumin 3.6 g/dL (3.2-4.8); Alkaline Phosphatase 348 U/L (46-116); Anion Gap 9 (5-15); Aspartate Aminotransferase 211 U/L (13-40); BUN/Creatinine Ratio 16.6 (10.0-20.0); Blood Urea Nitrogen 24 mg/dL (9-23); Calcium 9.3 mg/dL (8.7-10.4); Carbon Dioxide 24 mmol/L (20-30); Chloride 100 mmol/L (98-107); Glucose 138 mg/dL (74-106); Lipase 51 U/L (12-53); Potassium 3.2 mmol/L (3.5-5.1); Sodium 133 mmol/L (136-145)
[2024-02-06 21:55] LABS: Bilirubin, Total 0.3 mg/dL (0.2-1.0); Total Protein 6.8 g/dL (5.7-8.2)
[2024-02-06 22:05] LABS: INR 0.98 (0.9-1.15); Partial Thromboplastin Time 29.3 SEC (24.5-34.5); Prothrombin Time 10.4 sec (9.3-11.8)
[2024-02-06 23:48] VITALS: PULSE 119; RESP 20; O2SAT 95
[2024-02-07 00:20] VITALS: BP 119/82; PULSE 110; RESP 27; TEMP 97.4
[2024-02-07 00:52] VITALS: BP 121/85; PULSE 111; RESP 25; TEMP 97.9
[2024-02-07] MEDS: IOHEXOL 300 MG/ML 100ML BOTTLE IJ ONE (01:00)
[2024-02-07 01:10] VITALS: BP 124/80; PULSE 113; RESP 25; TEMP 98.2
[2024-02-07 01:18] VITALS: BP 119/82; PULSE 109; RESP 20; TEMP 98.2; O2SAT 98
== END 2024-02-07 01:23 | disposition short-term general hospital (02) ==
LOC: ER 20:32 → EDBD 20:32 → ER 02-07 01:23
DX: F45.8 Other somatoform disorders (principal); R10.84 Generalized abdominal pain; D64.9 Anemia, unspecified; K86.1 Other chronic pancreatitis; F17.210 Nicotine dependence, cigarettes, uncomplicated; F12.90 Cannabis use, unspecified, uncomplicated; Z79.899 Other long term (current) drug therapy; Z98.891 History of uterine scar from previous surgery; Z98.890 Other specified postprocedural states
CPT/HCPCS: 36415; 36430; 70450; 74178; 80053; 83690; 85025; 85610; 85730; 86850; 86900; 86901; 86920; 96361; 96374; 96375; 99285; J2270; J2405; J2470; J7040; P9016; Q9967

== ENCOUNTER → 2024-05-23 | Outpatient (CLI) | payer MEDICAID ==
[~2024-05-23] MED LIST changes: +ALBUTEROL SULF 2.5 MG/0.5ML(0.5%) NEB SOLN ONE
== END | disposition home or self-care (01) ==
LOC: RT 10:24
PROVIDERS: ATTEND Internal Medicine Pulmonary Disease
DX: R06.09 Other forms of dyspnea (principal); F17.210 Nicotine dependence, cigarettes, uncomplicated
CPT/HCPCS: 94060; 94618; 94727; 94729